=== PATIENT | male | born 1965 | race Caucasian/White ===

== ENCOUNTER 2022-01-03 23:50 | Inpatient (IN) ==
[2022-01-04 00:24] LABS: ABS Basophils 0.1 10^3/ul (0-0.2); ABS Eosinophils 0.1 10^3/ul (0-0.6); ABS Monocytes 0.5 10^3/ul (0-0.8); Hematocrit 43 % (42-52); Hemoglobin 14.5 g/dL (14.0-18.0); Lymphocyte % 35.3 %; Mean Corpuscular HGB Conc 34 g/dL (31-36); Mean Corpuscular Hemoglobin 32 pg (27-31); Mean Corpuscular Volume 93 fL (80-94); Mean Platelet Volume 7.9 fL (7.4-10.4); Platelet Count 178 10^3/uL (150-450); Red Blood Count 4.57 10^6 /uL (4.18-5.48); Red Cell Distribution Width 14 % (10-15); White Blood Count 5.8 10^3/uL (3.5-10.8)
[2022-01-04] MEDS ORDERED: TENECTEPLASE 50 MG VIAL KIT 5 MG/ML (reconstituted) IV ONE (00:32)
[2022-01-04] MEDS ORDERED: Iodixanol (CONTRAST) 320 MG/ML 100 ML SDV IV ONE (00:39)
[2022-01-04 00:50] LABS: Activated Partial Thrombo Time 32.5 seconds (26.0-38.0); INR 0.87 (0.89-1.11)
[2022-01-04 00:56] LABS: Albumin 3.8 g/dL (3.2-5.2); Albumin/Globulin Ratio 1.7 (1-3); Calcium 8.3 mg/dL (8.6-10.3); Globulin 2.2 g/dL (2-4); HDL Cholesterol 81.1 mg/dL; Potassium 3.8 mmol/L (3.5-5.0); Total Bilirubin 0.7 mg/dL (0.2-1.0); eGFR CKD-EPI 106.3 (>60)
[2022-01-04] MEDS ORDERED: Albuterol 2.5mg/3 ml (0.083%) NEB.SOLN INH PRN (01:45)
[2022-01-04 02:02] LABS: Urine Appearance Clear; Urine Bilirubin Negative (Negative); Urine Blood Negative (Negative); Urine Color Straw; Urine Glucose Negative (Negative); Urine Ketones Negative (Negative); Urine Nitrite Negative (Negative); Urine Protein Negative (Negative); Urine Specific Gravity 1.013 (1.002-1.030); Urine Urobilinogen Negative (Negative)
[2022-01-04 02:17] LABS: Urine Sodium Concentration < 18 mmol/L
[2022-01-04 02:24] LABS: Magnesium 1.8 mg/dL (1.9-2.7)
[2022-01-04 02:25] LABS: Urine Creatinine Concentration 16.44 mg/dL
[2022-01-04] MEDS ORDERED: Magnesium Sulfate 2 gm BAG 2 GM/50 ML BAG IVPB ONE (02:29)
[2022-01-04 02:39] LABS: TSH Ultra Thyroid Stim Horm 1.87 mcIU/mL (0.34-5.60)
[2022-01-04 02:46] LABS: Urine Osmo 123 mOsm/kg (150-1150)
[2022-01-04 02:46] LABS: Osmolality Serum 311 mOsm/kg (275-295)
[2022-01-04 04:57] LABS: High Sensitivity Troponin 1 Hr 4 pg/mL (<20)
[2022-01-04] MEDS ORDERED: KCL 20 MEQ/100 ML IVPREMIX 20 MEQ/100 ML BAG IV ONE (08:04)
[2022-01-04] MEDS: Nicotine PATCH 21 MG/24 HR PATCH TRANSDERM SCH (10:59)
[2022-01-04] MEDS: Multivitamins/Minerals TAB PO SCH ×2 (11:00→11:07)
[2022-01-04 19:39] LABS: Potassium 4.3 mmol/L (3.5-5.0); eGFR CKD-EPI 95.1 (>60)
[2022-01-04 19:40] LABS: Urine Benzodiazepine Screen None Detected (None Detect); Urine Cannabinoids Screen None Detected (None Detect); Urine Opiates Screen None Detected (None Detect)
[2022-01-04] MEDS: Acetaminophen IV 1 GM/100ML 1,000 MG/100 ML BAG IV PRN (22:43)
[2022-01-05 05:03] LABS: Calcium 8.6 mg/dL (8.6-10.3); HDL Cholesterol 77.1 mg/dL; Magnesium 1.9 mg/dL (1.9-2.7); Potassium 4.1 mmol/L (3.5-5.0); eGFR CKD-EPI 69.6 (>60)
[2022-01-05 05:56] LABS: ABS Basophils 0.1 10^3/ul (0-0.2); ABS Eosinophils 0.1 10^3/ul (0-0.6); ABS Lymphocytes 1.5 10^3/ul (1.0-4.8); ABS Monocytes 0.7 10^3/ul (0-0.8); ABS Neutrophils 2.9 10^3/ul (1.5-7.7); Eosinophil % 2.3 %; Hematocrit 41 % (42-52); Hemoglobin 14.3 g/dL (14.0-18.0); Lymphocyte % 28.3 %; Mean Corpuscular HGB Conc 35 g/dL (31-36); Mean Corpuscular Hemoglobin 33 pg (27-31); Mean Corpuscular Volume 94 fL (80-94); Mean Platelet Volume 8.6 fL (7.4-10.4); Nucleated Red Blood Cells % 0.1; Platelet Count 177 10^3/uL (150-450); Red Blood Count 4.35 10^6 /uL (4.18-5.48); Red Cell Distribution Width 14 % (10-15); White Blood Count 5.4 10^3/uL (3.5-10.8)
[2022-01-05] MEDS ORDERED: Magnesium Sulfate IV 1GM/100ML 1 GM/100 ML BAG IV ONE (07:40)
[2022-01-05] MEDS: Nicotine PATCH 21 MG/24 HR PATCH TRANSDERM SCH (08:28)
[2022-01-05] MEDS: Multivitamins/Minerals TAB PO SCH (08:28)
[2022-01-05] MEDS: Lactated Ringers 1000 ml BAG 1,000 ML IV SCH (12:29)
[2022-01-05] MEDS: Acetaminophen IV 1 GM/100ML 1,000 MG/100 ML BAG IV PRN (20:23)
[2022-01-06] MEDS ORDERED: Magnesium Sulfate IV 0.5 GM/ML 2 ml VIAL (1 gm) IVPB ONE (07:29)
[2022-01-06] MEDS ORDERED: Magnesium Sulfate 2 GM IV (Premix) IVPB ONE (08:00)
[2022-01-06] MEDS: Multivitamins/Minerals TAB PO SCH (08:30)
[2022-01-06] MEDS: Lactated Ringers 1000 ml BAG 1,000 ML IV SCH (08:30)
[2022-01-06] MEDS: Acetaminophen IV 1 GM/100ML 1,000 MG/100 ML BAG IV PRN (08:53)
[2022-01-06] MEDS: Nicotine PATCH 21 MG/24 HR PATCH TRANSDERM SCH (09:51)
[2022-01-06 15:12] VITALS: BP 154/84
== END 2022-01-06 18:20 | disposition home or self-care (01) | DRG 62 ==
LOC: ED 23:50 → SUATTDRO 01-04 01:29 → EDHOLD 01-04 01:29 → ICU 01-04 21:46 → MEDTELE 01-05 19:57
PROVIDERS: ADMIT Internal Medicine Critical Care Medicine; ATTEND Internal Medicine